=== PATIENT | female | born 2000 | race Caucasian/White ===

== ENCOUNTER 2023-08-19 23:29 | Emergency (ER) | payer BC ==
[~2023-08-19] VITALS: Ht 177.8 cm; Wt 75.3 kg
[2023-08-19 23:43] VITALS: BP 92/58; PULSE 88; RESP 16; TEMP 98.1; O2SAT 100
== END 2023-08-20 01:31 | disposition home or self-care (01) ==
LOC: MED 23:29
DX: O20.0 Threatened abortion (principal); Z3A.14 14 weeks gestation of pregnancy
CPT/HCPCS: 81002; 81025; 99282